=== PATIENT | female | born 1990 | race Caucasian/White ===

== ENCOUNTER → 2021-07-23 | Outpatient (CLI) | payer BC ==
--- NOTE | 2021-07-23 08:58 | XR ---
EXAMINATION TYPE: XR chest 2V DATE OF EXAM: 07/23/2021 COMPARISON: NONE HISTORY: R06.02 SOB TECHNIQUE: Frontal and lateral views of the chest are obtained. FINDINGS: There is no focal air space opacity, pleural effusion, or pneumothorax seen. The cardiac silhouette size is within normal limits. The osseous structures are intact, there is a spinal curva ture. IMPRESSION: No acute cardiopulmonary process.
== END | disposition home or self-care (01) ==
LOC: RADXRMAIN 06:46
PROVIDERS: ATTEND Nurse Practitioner Family
DX: R06.02 Shortness of breath (principal)
CPT/HCPCS: 71046